=== PATIENT | male | born 1955 | race Caucasian/White ===

== ENCOUNTER 2020-09-06 15:24 | Inpatient (IN) | payer BC, MEDICAID ==
[~2020-09-06] VITALS: Ht 182.9 cm; Wt 68.9 kg
[2020-09-06] MEDS ORDERED: HALOPERIDOL LACTATE 5MG/ML VIAL IM ONE (17:00)
[2020-09-06] MEDS ORDERED: LORAZEPAM 2MG/ML CPJ IV ONE (17:00)
[2020-09-06] MEDS ORDERED: TETANUS, DIPHTHERIA, PERTUSSIS VAC/PF 0.5ML (>7YR OLD) IM ONE (17:15)
[2020-09-06 17:42] LABS: BASOPHILS % 0.7 % (0.0-2.0); EOSINOPHILS % 0.9 % (0.0-5.0); HEMATOCRIT. 43.4 % (42.0-52.0); HEMOGLOBIN. 14.5 g/dL (14.0-18.0); MEAN CORPUSCULAR VOLUME 95.6 fL (80.0-94.0); MONOCYTES % 10.7 % (2.0-8.0); NEUTROPHILS % 60.7 % (40.0-76.0); PLATELET 186 x1000/uL (130-400); RED BLOOD CELL COUNT 4.54 mill/uL (4.7-6.1); RED CELL DISTRIBUTION WIDTH 14.2 % (11.6-14.6)
[2020-09-06 17:51] LABS: PARTIAL THROMBOPLASTIN TIME 24.3 sec (23.4-31.0); PROTHROMBIN TIME 10.7 sec (9.6-11.0)
[2020-09-06 17:52] LABS: ETHANOL BLOOD 20 mg/dL
[2020-09-06 17:56] LABS: CHLORIDE 108 mEq/L (98-107)
[2020-09-06 19:53] LABS: CLARITY URINE CLEAR (CLEAR); COLOR URINE YELLOW (YELLOW); KETONES URINE TRACE (NEGATIVE); LEUKOCYTE ESTERASE URINE NEGATIVE (NEGATIVE); NITRITE URINE NEGATIVE (NEGATIVE); OCCULT BLOOD URINE 2+ (NEGATIVE); PH URINE 5.5 (4.5-8.0); PROTEIN URINE 1+ (NEGATIVE); SPECIFIC GRAVITY URINE 1.019 (1.005-1.030)
[2020-09-06 20:06] LABS: *AMPHETAMINES SCREEN URINE NEGATIVE (NEGATIVE); *BARBITURATES SCREEN URINE NEGATIVE (NEGATIVE); *COCAINE SCREEN URINE PRESUMTIVE POSITIVE (NEGATIVE)
[2020-09-06 20:07] LABS: *BENZODIAZEPINES SCREEN URINE NEGATIVE (NEGATIVE); CANNABINOID URINE SCREEN NEGATIVE (NEGATIVE); METHADONE URINE SCREEN NEGATIVE (NEGATIVE); OPIATES URINE SCREEN NEGATIVE (NEGATIVE); PHENCYCLIDINE URINE SCREEN PRESUMTIVE POSITIVE (NEGATIVE)
[2020-09-06] MEDS ORDERED: DOCUSATE SODIUM 100MG CAPSULE PO PRN (22:00)
[2020-09-06] MEDS ORDERED: MAGNESIUM/ALUMINUM HYDROXIDE/SIMETHICONE 30ML UDC PO PRN (22:00)
[2020-09-06] MEDS ORDERED: DIPHENHYDRAMINE 50MG/ML VIAL IV PRN (22:00)
[2020-09-06] MEDS ORDERED: GUAIFENESIN 200MG/10ML SUGAR FREE UDC PO PRN (22:00)
[2020-09-06] MEDS ORDERED: LORAZEPAM 2MG/ML CPJ IV PRN (22:00)
[2020-09-06] MEDS ORDERED: ACETAMINOPHEN 325MG TABLET PO PRN (22:00)
[2020-09-06] MEDS ORDERED: ONDANSETRON HCL 4MG/2ML INJ IV PRN (22:00)
[2020-09-06] MEDS ORDERED: IPRATROPIUM/ALBUTEROL 0.5-3(2.5)MG/3ML NEB HHN PRN (22:00)
[2020-09-06] MEDS: SODIUM CHLORIDE 0.9% INJ 3ML FLUSH IVF SCH (22:24)
[2020-09-06] MEDS: SODIUM CHLORIDE 0.45% 1,000 ML IV SCH (22:27)
[2020-09-06] MEDS: CLONIDINE 0.1MG TABLET PO PRN (23:31)
[2020-09-06 23:42] LABS: CREATINE KINASE 207 IU/L (39-308)
[2020-09-07] VITALS (7 sets, daily range): BP systolic 166–202; BP diastolic 83–110
[2020-09-07] MEDS ORDERED: NIFE-53 MT (03:23)
[2020-09-07] MEDS ORDERED: METF-414 MT (03:23)
[2020-09-07] MEDS ORDERED: TAMS-11 MT (03:23)
[2020-09-07] MEDS: SODIUM CHLORIDE 0.9% INJ 3ML FLUSH IVF SCH ×3 (05:19→22:47)
[2020-09-07] MEDS: CLONIDINE 0.1MG TABLET PO PRN ×2 (06:13→17:06)
[2020-09-07 07:08] LABS: BASOPHILS % 0.4 % (0.0-2.0); EOSINOPHILS % 1.8 % (0.0-5.0); HEMOGLOBIN. 14.6 g/dL (14.0-18.0); LYMPHOCYTES % 27.7 % (20.0-50.0); MEAN CORPUSCULAR VOLUME 94.5 fL (80.0-94.0); MEAN PLATELET VOLUME 9.5 fl (7.4-10.4); MONOCYTES % 8.8 % (2.0-8.0); NEUTROPHILS % 61.3 % (40.0-76.0); PLATELET 173 x1000/uL (130-400); RED BLOOD CELL COUNT 4.55 mill/uL (4.7-6.1); RED CELL DISTRIBUTION WIDTH 13.7 % (11.6-14.6)
[2020-09-07 07:16] LABS: CHLORIDE 107 mEq/L (98-107)
[2020-09-07 07:29] LABS: CREATINE KINASE 168 IU/L (39-308)
[2020-09-07 07:32] LABS: CREATINE KINASE MB FRACTION 2.7 ng/mL (0.5-3.6)
[2020-09-07] MEDS: ENOXAPARIN 40MG/0.4ML SYR SUBCUT SCH (09:30)
[2020-09-07 10:02] LABS: T4 FREE 0.77 ng/dL (0.76-1.46)
[2020-09-07] MEDS ORDERED: DEXTROSE 50% WATER 50ML SYRINGE IV PRN (12:15)
[2020-09-07] MEDS: SODIUM CHLORIDE 0.45% 1,000 ML IV SCH ×2 (12:49→23:25)
[2020-09-07] MEDS: INSULIN LISPRO 100 UNITS/ML SUBCUT SCH ×3 (13:01→22:21)
[2020-09-07] MEDS: BLOOD SUGAR DIAGNOSTIC STRIP TEST SCH ×2 (16:53→21:00)
[2020-09-07 17:19] LABS: CREATINE KINASE 138 IU/L (39-308)
[2020-09-07 17:20] LABS: CREATINE KINASE MB FRACTION 2.6 ng/mL (0.5-3.6)
[2020-09-07] MEDS: HYDRALAZINE 20MG/ML VIAL IV PRN (22:01)
[2020-09-08] VITALS (8 sets, daily range): BP systolic 155–182; BP diastolic 88–99
[2020-09-08] MEDS: CLONIDINE 0.1MG TABLET PO PRN (00:21)
[2020-09-08 00:41] LABS: CREATINE KINASE 120 IU/L (39-308)
[2020-09-08 00:43] LABS: CREATINE KINASE MB FRACTION 2.7 ng/mL (0.5-3.6)
[2020-09-08] MEDS: HYDRALAZINE 20MG/ML VIAL IV PRN ×2 (04:55→20:22)
[2020-09-08] MEDS: SODIUM CHLORIDE 0.9% INJ 3ML FLUSH IVF SCH ×3 (04:59→20:22)
[2020-09-08 06:33] LABS: BASOPHILS % 0.6 % (0.0-2.0); EOSINOPHILS % 3.4 % (0.0-5.0); HEMATOCRIT. 42.6 % (42.0-52.0); LYMPHOCYTES % 37.6 % (20.0-50.0); MEAN CORPUSCULAR HEMOGLOBIN 31.3 pg (28.0-32.0); MEAN CORPUSCULAR VOLUME 94.9 fL (80.0-94.0); MEAN PLATELET VOLUME 10.4 fl (7.4-10.4); MONOCYTES % 10.8 % (2.0-8.0); NEUTROPHILS % 47.6 % (40.0-76.0); PLATELET 153 x1000/uL (130-400); RED BLOOD CELL COUNT 4.49 mill/uL (4.7-6.1); RED CELL DISTRIBUTION WIDTH 13.5 % (11.6-14.6)
[2020-09-08] MEDS: BLOOD SUGAR DIAGNOSTIC STRIP TEST SCH ×4 (06:39→20:21)
[2020-09-08] MEDS: INSULIN LISPRO 100 UNITS/ML SUBCUT SCH ×4 (06:40→20:24)
[2020-09-08 07:24] LABS: CHLORIDE 107 mEq/L (98-107)
[2020-09-08 07:33] LABS: CREATINE KINASE 107 IU/L (39-308)
[2020-09-08 07:45] LABS: CREATINE KINASE MB FRACTION 2.8 ng/mL (0.5-3.6)
[2020-09-08] MEDS: ENOXAPARIN 40MG/0.4ML SYR SUBCUT SCH (09:00)
[2020-09-08] MEDS: SODIUM CHLORIDE 0.45% 1,000 ML IV SCH (16:56)
[2020-09-09] VITALS: BP 150/77
[2020-09-09 04:00] VITALS: BP 134/88
[2020-09-09] MEDS: SODIUM CHLORIDE 0.45% 1,000 ML IV SCH (05:57)
[2020-09-09] MEDS: SODIUM CHLORIDE 0.9% INJ 3ML FLUSH IVF SCH (05:57)
[2020-09-09] MEDS: BLOOD SUGAR DIAGNOSTIC STRIP TEST SCH (05:59)
[2020-09-09] MEDS: INSULIN LISPRO 100 UNITS/ML SUBCUT SCH (05:59)
[2020-09-09 08:00] VITALS: BP 138/76
[2020-09-09] MEDS: ENOXAPARIN 40MG/0.4ML SYR SUBCUT SCH (08:11)
== END 2020-09-09 09:30 | disposition left against medical advice (07) | DRG 91 ==
LOC: EDBD 15:24 → ER 15:24 → MICUSO 21:32 → EDBEDREQ 21:35 → EDBEDREQTM 21:35 → 5WST 23:44
PROVIDERS: ADMIT Internal Medicine; ATTEND Internal Medicine
PROC: 0HQGXZZ Repair Left Hand Skin, External Approach (ICD-10-PCS; principal; 2020-09-06)
DX: G92 Toxic encephalopathy (principal); N17.0 Acute kidney failure with tubular necrosis; E87.2 Acidosis; E11.9 Type 2 diabetes mellitus without complications; E86.0 Dehydration; F16.10 Hallucinogen abuse, uncomplicated; F14.10 Cocaine abuse, uncomplicated; S61.217A Laceration without foreign body of left little finger without damage to nail, initial encounter; I11.9 Hypertensive heart disease without heart failure; X58.XXXA Exposure to other specified factors, initial encounter; F17.200 Nicotine dependence, unspecified, uncomplicated; I25.2 Old myocardial infarction; Z59.0 Homelessness; Z86.73 Personal history of transient ischemic attack (TIA), and cerebral infarction without residual deficits; Z91.19 Patient's noncompliance with other medical treatment and regimen; Y93.89 Activity, other specified; Y92.89 Other specified places as the place of occurrence of the external cause; Y99.8 Other external cause status; Z71.51 Drug abuse counseling and surveillance of drug abuser; Z79.84 Long term (current) use of oral hypoglycemic drugs
CPT/HCPCS: 36415; 71045; 73140; 80048; 80053; 80061; 80076; 80305; 80307; 80320; 80329; 81003; 82140; 82550; 82553; 82962; 83036; 83605; 83880; 83930; 84439; 84443; 84484; 85025; 85379; 86592; 90715; 93306; 99291; J0360; J1650; J1815; J2060; G0480